=== PATIENT | male | born 1965 | race Caucasian/White ===

== ENCOUNTER 2018-12-05 11:42 | Emergency (ER) | payer BC ==
[~2018-12-05] VITALS: Ht 180.3 cm; Wt 113.0 kg
[~2018-12-05 11:42] MED LIST: ATOR10TA PO; FENO145T30 PO; LISI5TAB7 PO; RIVA15TA PO
--- NOTE | 2018-12-05 12:15 | NUR ---
URINE DARK RED X 2 DAYS. 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 DENIES URINARY/ABD SXS. REPORTS HX ON TRANSIENT RECTAL BLEEDING APPEARS WELL-VITALS STABLE ON ASSEMBLER TRACTOR PIV PLACED LAB AT BEDSIDE-SAMPLES SENT
[2018-12-05 12:28] LABS: BASOPHILS # (AUTO) 0.03 x10^3/uL (0-0.1); BASOPHILS % (AUTO) 0 % (0-1); EOSINOPHILS # (AUTO) 0.36 x10^3/uL (0-0.4); EOSINOPHILS % (AUTO) 5 % (1-7); LYMPHOCYTES # (AUTO) 1.78 x10^3/uL (1-3.4); LYMPHOCYTES % (AUTO) 24 % (22-44); MD NO; MEAN CORPUSCULAR HEMOGLOBIN 31.6 pg (27.5-34.5); MEAN PLATELET VOLUME 8.3 fL (7.4-10.4); MONOCYTES # (AUTO) 0.65 x10^3/uL (0.2-0.8); MONOCYTES % (AUTO) 9 % (2-9); NEUTROPHILS # (AUTO) 4.64 x10^3/uL (1.8-6.8); NEUTROPHILS % (AUTO) 62 % (42-75); PLATELET COUNT 274 x10^3/uL (130-400); RED BLOOD COUNT 5.19 x10^6/uL (4.38-5.82); RED CELL DISTRIBUTION WIDTH 12.8 % (9.4-14.8)
[2018-12-05 12:36] LABS: MICROSCOPIC INDICATED
[2018-12-05 12:41] LABS: ALBUMIN 3.9 g/dL (3.4-5.0); CALCIUM 9.1 mg/dL (8.5-10.1); CHLORIDE 111 mmol/L (98-107)
[2018-12-05 12:47] LABS: ALANINE AMINOTRANSFERASE 37 U/L (12-78); ALKALINE PHOSPHATASE 86 U/L (45-117); ANION GAP 6 mmol/L (5-15); BILIRUBIN,TOTAL 0.5 mg/dL (0.2-1.0); CREATININE 1.09 mg/dL (0.7-1.3); TOTAL PROTEIN 6.9 g/dL (6.4-8.2)
[2018-12-05 12:51] LABS: CULTURE INDICATED? YES
--- NOTE | 2018-12-05 13:32 | NUR ---
PVR OF ZERO (O ML ) PROVIDER MADE AWARE UPDATED ON ESTIMATED POC
[2018-12-05 13:52] VITALS: BP 135/78
--- NOTE | 2018-12-05 13:53 | NUR ---
REVIEWED POC W/ PATIENT- TO F/U WITH PCP WELL UROLOGIST THIS WEEK. ALSO TO RETURN TO ER IF BLEEDING PERSIST/DIFFICULTY URINATING/FEELS FAINT
== END 2018-12-05 13:55 | disposition home or self-care (01) ==
LOC: ED 13:49
DX: R31.0 Gross hematuria (principal)
CPT/HCPCS: 36415; 80053; 81001; 83690; 85025; 87086; 99283

== ENCOUNTER → 2019-05-11 | Outpatient (CLI) | payer BC ==
[~2019-05-11] MED LIST changes: +DOXY100T PO; +REGADENOSON 0.4 MG/5 ML SYRINGE ONE
== END | disposition home or self-care (01) ==
LOC: CFH 07:37
PROVIDERS: ATTEND Internal Medicine Cardiovascular Disease
DX: R07.89 Other chest pain (principal); I10 Essential (primary) hypertension; I63.9 Cerebral infarction, unspecified; Z91.013 Allergy to seafood
CPT/HCPCS: 78452; 93017; A9502; J2785